=== PATIENT | female | born 1995 | race Caucasian/White ===

== ENCOUNTER 2016-05-02 22:00 | Emergency (ER) | payer BC ==
[~2016-05-02] VITALS: Ht 160 cm; Wt 62.7 kg
[2016-05-02 22:07] VITALS: Ht 160 cm; Wt 62.7 kg
[2016-05-02] MEDS ORDERED: ACETAMINOPHEN 500 MG TAB PO STA (22:30)
[2016-05-02] MEDS ORDERED: CABE0.5T PO (22:51)
[2016-05-02] MEDS ORDERED: CLR10 PO (22:51)
[2016-05-02] MEDS ORDERED: BCPILLS PO (22:51)
[2016-05-02] MEDS ORDERED: GUAI1TAB55 PO (22:51)
[2016-05-02] MEDS ORDERED: OSEL75CA12 PO (23:12)
[2016-05-02] MEDS ORDERED: OSELTAMIVIR PHOSPHATE 75 MG CAP PO STA (23:13)
--- NOTE | 2016-05-02 23:13 | EMERGENCY ROOM VISIT NOTE ---
History Report prepared by Arin: Alvaro Martines Under the Supervision of: Dr. George Guevara D.O. First contact with patient: 22:22 Chief Complaint: FEVER Stated Complaint: FEVER 103.1, SWOLLEN THROAT, COUGH,POST NASAL DRIP History of Present Illness The patient is a 20 year old female who presents to the Emergency Room with complaints of a fever that started at approximately 2896-8165 today. The patient has been measuring her temperature, which reached 103. The patient has also has a sore throat, cough, and post-nasal drip for several days.The patient had Motrin at 2000 tonight. She went to [email or web address] yesterday because she thought she saw white dots on her tonsils and she is prone to strep. She had a negative rapid strep test and her cultures are pending. The patient was started on Prednisone last night. She did not take another dose yet today because of the worsening fever. Source of History: patient Onset: 4442-0425 today Position: other (global) Symptom Intensity: 103 Quality: other (febrile) Associated Symptoms: + cough, + sorethroat Review of Systems See HPI for pertinent positives & negatives. A total of 10 systems reviewed and were otherwise negative. Past Medical & Surgical Medical Problems: (1) Strep throat Family History No pertinent family history Social History Housing Status: lives with roommate Occupation Status: [employer] Current/Historical Medications Scheduled Control Pills ( Control Pills), 1 TAB PO DAILY Cabergoline (Cabergoline), 0.25 MG PO 2XWK Oseltamivir (Tamiflu), 75 MG PO BID Scheduled PRN Guaifenesin Ext Rel (Mucinex Ext Rel), 600 MG PO Q12 PRN for CONGESTION Loratadine (Claritin), 10 MG PO DAILY PRN for ALLERGIC REACTION Physical Exam Vital Signs Date Time Temp Pulse Resp B/P Pulse Ox O2 Delivery O2 Flow Rate FiO2 05/02/16 22:07 38.8 121 18 112/68 96 Room Air Physical Exam CONSTITUTIONAL/VITAL SIGNS: Reviewed / noted above. GENERAL: Non-toxic in appearance. INTEGUMENTARY: Warm, dry, and [place]. HEAD: Normocephalic. EYES: without scleral icterus or trauma. ENT/OROPHARYNX: Posterior oropharyngeal erythema that is mild. LYMPHADENOPATHY/NECK: Is supple without lymphadenopathy or meningismus. RESPIRATORY: Lungs clear and equal. CARDIOVASCULAR: Regular rate and rhythm. GI/ABDOMEN: Soft and nontender. No organomegaly or pulsatile mass. No rebound or guarding. Normal bowel sounds. EXTREMITIES: Warm and well perfused. BACK: No CVA tenderness. NEUROLOGICAL: Intact without focal deficits. PSYCHIATRIC: normal affect. MUSCULOSKELETAL: Normally developed with good muscle tone. Medical Decision & Procedures Laboratory Results Test 05/02/16 22:35 Influenza Type A Antigen POS for Influ A (NEG) Influenza Type B Antigen Neg for Influ B (NEG) Laboratory results as stated above per my review. Medications Administered Medications (Trade) Dose Ordered Sig/Jorge Route Start Time Stop Time Status Last Admin Dose Admin Acetaminophen (Tylenol Tab) 1,000 mg NOW STAT PO 05/02/16 22:30 05/02/16 22:31 DC 05/02/16 22:34 1,000 MG ED Course 2224: Previous medical records were reviewed. The patient was evaluated in room A11b. A complete history and physical examination was performed. 2230: Tylenol 1000 mg PO. 2315: Tamiflu 75mg PO. 2315: On reevaluation, the patient is doing well. I discussed the results and findings with the patient. She verbalized agreement of the treatment plan. She was discharged home. Medical Decision Differential includes viral illness, influenza, streptococcal pharyngitis, meningitis, pneumonia, sinusitis, UTI, pyelonephritis, otitis media. This is a 20-year-old female who presents to the ED with a chief complaint of upper respiratory symptoms. She has a positive influenza test. She was started on Tamiflu. Impression Primary Impression: Influenza A Scribe Attestation The scribe's documentation has been prepared under my direction and personally reviewed by me in its entirety. I confirm that the note above accurately reflects all work, treatment, procedures, and medical decision making performed by me. Departure Information Prescriptions Oseltamivir (Tamiflu) 75 Mg Cap 75 MG PO BID, #10 CAP Prov: George Guevara D.O. 05/02/16 Referrals No Doctor, Assigned (PCP) Patient Instructions ED Influenza Ch, My [facility] Additional Instructions Tamiflu as prescribed. Take Tylenol or Motrin as needed for fever.
[2016-05-02 23:20] VITALS: BP 118/67; PULSE 112; TEMP 37.6; O2SAT 98
== END 2016-05-02 23:21 | disposition home or self-care (01) ==
LOC: C.EDB 22:02 → C.EDA 23:21
DX: J11.1 Influenza due to unidentified influenza virus with other respiratory manifestations (principal)

== ENCOUNTER → 2017-04-03 | Outpatient (CLI) | payer BC ==
[~2017-04-03] MED LIST: BCPILLS PO; CABE0.5T PO; CLR10 PO; GUAI1TAB55 PO
== END | disposition home or self-care (01) ==
LOC: C.LAB1850 15:58
PROVIDERS: ATTEND Internal Medicine Endocrinology, Diabetes & Metabolism
DX: D35.2 Benign neoplasm of pituitary gland (principal)